=== PATIENT | male | born 1950 | race Caucasian/White ===

== ENCOUNTER 2019-08-14 00:30 | Inpatient (IN) | payer OTHER ==
[2019-08-14 01:19] LABS: #Eosinphils 0.1 thou/uL (0.0-0.7); #Lymphocytes 1.6 thou/uL (1.20-3.40); #Monocytes 0.6 thou/uL (0.11-0.59); #Neutrophils 12.5 thou/uL (1.40-6.50); %Basophils 0.1 % (0.0-1.0); %Eosinophils 0.9 % (0.0-10.0); %Lymphocytes 10.7 % (21.0-51.0); %Monocytes 4.1 % (0.0-10.0); %Neutrophils 84.1 % (42.0-75.0); Hemoglobin 14.2 g/dL (14.0-18.0); Mean Corpuscular HGB CONC 31.8 g/dL (32.0-36.0); Mean Corpuscular Hemoglobin 27.1 pg (27.0-31.0); Mean Corpuscular Volume 85.1 fL (78.0-98.0); Mean Platelet Volume 9.3 fL (7.4-10.4); Platelet Count 183 thou/uL (130-400); RBC Distribution Width 14.5 % (11.5-14.5); Red Blood Cell (RBC) Count 5.23 mill/uL (4.70-6.10); White Blood Cell (WBC) Count 14.9 thou/uL (4.8-10.8)
[2019-08-14 01:25] LABS: INR-International Normal Ratio 2.9; PTT 32.1 SEC (22.9-36.1)
[2019-08-14] MEDS ORDERED: Ondansetron PF 4 MG/2 ML Vial ONE (01:33)
[2019-08-14] MEDS ORDERED: Morphine 4 MG/ML VIAL ONE ×3 (01:33→03:40)
[2019-08-14 01:38] LABS: ALT (SGPT) 20 U/L (8-55); AST (SGOT) 39 U/L (5-34); Albumin 3.4 g/dL (3.4-4.8); Alkaline Phosphatase 77 U/L (40-110); Anion Gap 12 mmol/L (10-20); BUN (Urea Nitrogen) 15 mg/dL (8.4-25.7); Bilirubin, Total 0.5 mg/dL (0.2-1.2); Calc. Creatinine Clearance 0 mL/min (70-130); Carbon Dioxide 23 mmol/L (23-31); Chloride 108 mmol/L (98-107); Estimated GFR-MDRD 68; Globulin 2.4 g/dL (2.4-3.5); Glucose 138 mg/dL (80-115); Lipase 24 U/L (8-78); Potassium 3.7 mmol/L (3.5-5.1); Protein, Total 5.8 g/dL (5.8-8.1); Sodium 139 mmol/L (136-145)
[2019-08-14] MEDS ORDERED: [UNRECOGNIZED DRUG - OTHER] IV SCH (03:30)
[2019-08-14] MEDS ORDERED: ADMIXTURE FEE IV SCH (03:30)
[2019-08-14] MEDS ORDERED: HUM PROTHROMBIN CPLX IV SCH (03:30)
[2019-08-14] MEDS ORDERED: Phytonadione 10 MG/ML AMP SLOW IVP SCH (03:30)
[2019-08-14] MEDS ORDERED: Ondansetron PF 4 MG/2 ML Vial IVP PRN (04:38)
[2019-08-14] MEDS ORDERED: Ondansetron ODT 4 MG TAB PO PRN (04:38)
[2019-08-14] MEDS ORDERED: Sodium Chloride 0.9% 1,000 ML IV SCH (04:38)
[2019-08-14] MEDS ORDERED: HYDROcodone/Acetaminophen 5/325 mg Tablet PO PRN (04:38)
[2019-08-14] MEDS ORDERED: Dextrose 50% Abboject 50 ML SYRINGE SLOW IVP PRN (04:38)
[2019-08-14] MEDS ORDERED: Dextrose 5% in Water 1,000 ML IV PRN (04:38)
[2019-08-14] MEDS: HYDROcodone/Acetaminophen 5/325 mg Tablet PO PRN ×3 (05:18→23:23)
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
[2019-08-14] MEDS ORDERED: Acetaminophen 325 MG TAB PO PRN (07:03)
[2019-08-14] MEDS: Cyclobenzaprine 10 MG TAB PO PRN ×2 (07:45→18:03)
[2019-08-14] MEDS: Morphine 2 MG/ML SYRINGE SLOW IVP PRN ×4 (07:45→21:38)
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
--- NOTE | 2019-08-14 08:07 | RAD ---
EXAM: Single view of the chest HISTORY: Right rib fracture and effusion COMPARISON: None FINDINGS: Single view of the chest shows a normal sized cardiomediastinal silhouette. There is no justice dence of consolidation, mass, or pleural effusion. Degenerative changes are seen in the spine. IMPRESSION: No evidence of acute cardiopulmonary disease
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
[2019-08-14] MEDS: Famotidine 20 MG TAB PO SCH ×2 (09:01→20:18)
[2019-08-14] MEDS: Gabapentin 300 MG CAP PO SCH ×2 (09:01→20:18)
--- NOTE | 2019-08-14 09:01 | MRI ---
EXAM: MRI cervical spine without contrast HISTORY: C7 fracture with neck pain and cervical stenosis COMPARISON: None TECHNIQUE: Multiplanar multisequence MR images were obtained of the cervical spine without contrast. FINDINGS: There is a fracture of the C7 vertebral body and left posterior element. There is questionable abnormal T2 signal in the central cord on image 21 and 22. This is only seen on 1 of the 2 provided T2 sequences and may be artifactual but edema within the cord cannot be excluded. The craniocervical junction is unremarkable. Extensive edema is seen in the posterior paraspinal soft tissues in the upper cervical spine extendin g from the skull base down to the C7 level. A small amount of prevertebral edema is also seen. C2/3: Small generalized concentric disc bulge. No posterior facet arthrosis. Mild central canal jessica nosis. Mild bilateral neural foraminal stenosis. C3/4: Large disc osteophyte complex. Mild bilateral posterior facet arthrosis. Severe central canal stenosis. Moderate to severe neural foraminal stenosis. C4/5: Large disc osteophyte complex. Mild bilateral posterior facet arthrosis. Severe central canal stenosis. Moderate to severe neural foraminal stenosis. C5/6: A large disc osteophyte complex. Mild bilateral posterior facet arthrosis. Severe central can al stenosis. Moderate to severe neural foraminal stenosis. C6/7: A small disc osteophyte complex with superimposed right subarticular protrusion. No posterior facet arthrosis. Mild central canal stenosis. Mild bilateral neural foraminal stenosis. C7/T1: No significant posterior bulge or protrusion. Mild to moderate bilateral posterior facet arth rosis. Mild central canal stenosis. Moderate bilateral neural foraminal stenosis. IMPRESSION: 1. C7 fracture as above 2. Extensive edema in the soft tissues of the neck. 3. Questionable abnormal cord signal posterior to the area of fracture. This could also be artifactua l. Correlate with physical exam. 4. Severe degenerative changes of the cervical spine.
--- NOTE | 2019-08-14 09:03 | CT ---
EXAM: CT brain without contrast HISTORY: Small falcine subdural hemorrhage COMPARISON: 08/14/2019 TECHNIQUE: Multiple contiguous axial images were obtained and a CT of the brain without contrast. FINDINGS: There are scattered hypodensities in the subcortical and periventricular white matter consi stent with small vessel ischemic disease. There is no evidence of hydrocephalus, intracranial hemorrhage, or extra-axial fluid collection. The calvarium and overlying soft tissues are unremarkable. The visualized paranasal sinuses and masto id air cells are well aerated. IMPRESSION: No evidence of acute intracranial abnormality. No definite intracranial hemorrhage is see n.
[2019-08-14 10:32] LABS: INR-International Normal Ratio 1.4; PTT 29.2 SEC (22.9-36.1); Prothrombin Time 17.4 SEC (12.0-14.7)
[2019-08-14] MEDS ORDERED: Iopamidol-370 76% 500 ML 1 ML ONE (10:58)
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
[2019-08-14 11:45] LABS: Bacteria/HPF None Seen HPF (None Seen); Bilirubin Negative (Negative); Blood, Urine 1+ (Negative); Clarity Clear (Clear); Glucose, Urine (Dipstick) Normal (Negative); Leukocyte Negative Leu/uL (Negative); Nitrite Negative (Negative); Protein, Urine (Dipstick) 10 mg/dL (Neg-Trace); RBC/HPF 0-3 HPF (0-3); Squamous Epithelial 0-3 HPF (0-3); Urobilinogen Normal mg/dL (Less than 2)
[2019-08-14 12:37] LABS: INR-International Normal Ratio 1.4; PTT 28.9 SEC (22.9-36.1); Prothrombin Time 17.5 SEC (12.0-14.7)
[2019-08-14 18:21] LABS: INR-International Normal Ratio 1.4; Prothrombin Time 16.7 SEC (12.0-14.7)
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
[2019-08-15] MEDS: Morphine 2 MG/ML SYRINGE SLOW IVP PRN ×2 (01:45→06:34)
[2019-08-15] MEDS ORDERED: Zolpidem Tartrate 5 MG TAB PO PRN (03:28)
[2019-08-15] MEDS ORDERED: Lorazepam 2 MG/ML VIAL SLOW IVP SCH (03:30)
[2019-08-15] MEDS ORDERED: Sodium Chloride 0.9% 1,000 ML IV SCH (03:30)
[2019-08-15 03:35] LABS: #Eosinphils 0.1 thou/uL (0.0-0.7); #Lymphocytes 1.2 thou/uL (1.20-3.40); #Monocytes 0.8 thou/uL (0.11-0.59); #Neutrophils 8.4 thou/uL (1.40-6.50); %Basophils 0.1 % (0.0-1.0); %Eosinophils 1.3 % (0.0-10.0); %Monocytes 7.2 % (0.0-10.0); %Neutrophils 80.5 % (42.0-75.0); Hemoglobin 12.8 g/dL (14.0-18.0); Mean Corpuscular Hemoglobin 27.1 pg (27.0-31.0); Mean Corpuscular Volume 87.4 fL (78.0-98.0); Mean Platelet Volume 9.2 fL (7.4-10.4); Platelet Count 169 thou/uL (130-400); RBC Distribution Width 14.5 % (11.5-14.5); Red Blood Cell (RBC) Count 4.73 mill/uL (4.70-6.10); White Blood Cell (WBC) Count 10.4 thou/uL (4.8-10.8)
[2019-08-15] MEDS: Oxymetazoline HCl 0.05% (30 ML BOT) NS PRN (03:35)
[2019-08-15 03:43] LABS: INR-International Normal Ratio 1.3; PTT 32.5 SEC (22.9-36.1); Prothrombin Time 15.9 SEC (12.0-14.7)
[2019-08-15 03:54] LABS: Anion Gap 11 mmol/L (10-20); BUN (Urea Nitrogen) 11 mg/dL (8.4-25.7); Calc. Creatinine Clearance 146 mL/min (70-130); Calcium 7.9 mg/dL (7.8-10.44); Carbon Dioxide 26 mmol/L (23-31); Chloride 106 mmol/L (98-107); Estimated GFR-MDRD 83; Glucose 114 mg/dL (80-115); Potassium 4.1 mmol/L (3.5-5.1); Sodium 139 mmol/L (136-145)
[2019-08-15] MEDS: Famotidine 20 MG TAB PO SCH (07:39)
[2019-08-15] MEDS ORDERED: Bacitracin Zinc Ointment 30 gm TUBE ONE ×2 (07:40→07:41)
[2019-08-15] MEDS ORDERED: Sodium Chloride 0.9% 20 ML ONE (07:40)
[2019-08-15] MEDS: Gabapentin 300 MG CAP PO SCH ×2 (07:40→22:31)
[2019-08-15] MEDS: Cyclobenzaprine 10 MG TAB PO PRN (07:40)
[2019-08-15] MEDS ORDERED: Thrombin 5000 UNITS/5 ML VIAL ONE (07:40)
[2019-08-15] MEDS ORDERED: Fentanyl 250 MCG/5 ML VIAL ONE (08:06)
[2019-08-15] MEDS ORDERED: Phenylephrine HCL 10 MG/ML VIAL ONE ×2 (08:07→09:05)
[2019-08-15] MEDS ORDERED: Lidocaine 1% PF 5 ML VIAL ONE (09:08)
[2019-08-15] MEDS ORDERED: Rocuronium Bromide 10 MG/ML (10ML VIAL) ONE (09:08)
[2019-08-15] MEDS ORDERED: ePHEDrine/0.9% NaCl/PF SYRINGE 50 mg/10 ml ONE (09:08)
[2019-08-15] MEDS ORDERED: Ondansetron PF 4 MG/2 ML Vial ONE (09:08)
[2019-08-15] MEDS ORDERED: PROPOFOL 200 MG/20 ML VIAL ONE (09:08)
[2019-08-15] MEDS ORDERED: Rocuronium Bromide 50 MG/5 ML VIAL ONE ×2 (10:33→11:45)
[2019-08-15] MEDS ORDERED: Fentanyl BOLUS 250 ML IVPB PRN (11:12)
[2019-08-15] MEDS ORDERED: fentaNYL Citrate/PF 2,000 MCG in Sodium Chloride 0.9% 60 ML IV SCH (11:12)
[2019-08-15] MEDS ORDERED: DISCONTINUE PREVIOUS NARCOTIC PAIN MEDICATIONS AND BENZODIAZEPINES FS SCH (11:12)
[2019-08-15] MEDS ORDERED: Morphine 2 MG/ML SYRINGE SLOW IVP PRN (11:12)
[2019-08-15] MEDS ORDERED: Propofol BOLUS 1,000 MG/100 ML VIAL IV PRN (11:12)
[2019-08-15] MEDS ORDERED: Ventilator Sedation Protocol 1 EACH FS SCH (11:15)
[2019-08-15] MEDS ORDERED: Midazolam HCl 2 mg/2 ml Vial ONE (11:45)
[2019-08-15] MEDS: Propofol 1,000 MG/100 ML VIAL IV PRN ×2 (11:56→22:42)
[2019-08-15 13:20] LABS: Actual Bicarbonate (HCO3a) 25.4 mEq/L (22-28); Base Excess (BEa) 0.9 mEq/L (-2.0 to +3.0); CO2 Tension 40.1 mmHg (35.0-45.0); Calcium, Ionized 1.06 mmol/L (1.12-1.30); Carboxyhemoglobin (COHb) 2.2 gm% (0.0-3.0); Hemoglobin (Hb) 11.8 g/dL (14.0-18.0); O2 Tension (PaO2) 65.8 mmHg (> 80.0); pH, Arterial 7.42 (7.35-7.45)
[2019-08-15 13:21] LABS: ALV-art Gradient 240.575 (0-20); Puncture Site RR
[2019-08-15] MEDS: CEFAZOLIN 2 GM in Premix Bag 1 BAG IVPB SCH ×2 (13:32→22:32)
[2019-08-15] MEDS: Lorazepam 2 MG/ML VIAL SLOW IVP PRN ×2 (13:53→17:20)
[2019-08-15] MEDS ORDERED: traMADol HCl 50 MG TAB PO PRN ×2 (18:17)
[2019-08-15] MEDS ORDERED: Sodium Chloride 0.9% (PF) 10 ML VIAL FS PRN (18:23)
[2019-08-15] MEDS ORDERED: Acetaminophen 325 MG TAB PO SCH (18:30)
[2019-08-15 19:23] LABS: Actual Bicarbonate (HCO3a) 25.4 mEq/L (22-28); Base Excess (BEa) 1.4 mEq/L (-2.0 to +3.0); CO2 Tension 37.9 mmHg (35.0-45.0); Calcium, Ionized 1.06 mmol/L (1.12-1.30); Carboxyhemoglobin (COHb) 0.7 gm% (0.0-3.0); Hemoglobin (Hb) 11.5 g/dL (14.0-18.0); O2 Tension (PaO2) 96.9 mmHg (> 80.0); Potassium - ABG Lab 4.06 mmol/L (3.70-5.30); pH, Arterial 7.44 (7.35-7.45)
[2019-08-15 19:24] LABS: ALV-art Gradient 212.225 (0-20); Puncture Site RRADIAL
[2019-08-15] MEDS: Sodium Chloride 0.9% 1,000 ML IV SCH (19:42)
[2019-08-15] MEDS ORDERED: Dexamethasone 4 mg/ml Vial SLOW IVP SCH (21:00)
[2019-08-15] MEDS: Melatonin 3 MG TAB PO SCH (22:31)
[2019-08-16] MEDS: Acetaminophen 325 MG TAB PO SCH ×5 (00:30→23:43)
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
[2019-08-16] MEDS: Sodium Chloride 0.9% 1,000 ML IV SCH ×2 (03:32→11:03)
[2019-08-16 04:02] LABS: Band 1 % (5-11); Hemoglobin 10.7 g/dL (14.0-18.0); Lymphocytes 7 % (21-51); MDiff Complete? YES; Mean Corpuscular HGB CONC 31.9 g/dL (32.0-36.0); Mean Corpuscular Hemoglobin 27.7 pg (27.0-31.0); Mean Corpuscular Volume 86.7 fL (78.0-98.0); Mean Platelet Volume 9.3 fL (7.4-10.4); Monocytes 2 % (0-10); Neutrophil 90 % (42-75); Platelet Count 164 thou/uL (130-400); Platelet Morphology Comment Appears Adequate; RBC Distribution Width 14.2 % (11.5-14.5); Red Blood Cell (RBC) Count 3.86 mill/uL (4.70-6.10); White Blood Cell (WBC) Count 12.2 thou/uL (4.8-10.8)
[2019-08-16 04:07] LABS: Anion Gap 11 mmol/L (10-20); BUN (Urea Nitrogen) 12 mg/dL (8.4-25.7); Calc. Creatinine Clearance 166 mL/min (70-130); Calcium 7.5 mg/dL (7.8-10.44); Carbon Dioxide 25 mmol/L (23-31); Chloride 106 mmol/L (98-107); Estimated GFR-MDRD Greater than 90; Glucose 146 mg/dL (80-115); Magnesium 2.1 mg/dL (1.6-2.6); Potassium 4.2 mmol/L (3.5-5.1); Sodium 138 mmol/L (136-145)
[2019-08-16 04:10] LABS: Phosphorus 1.8 mg/dL (2.3-4.7)
[2019-08-16] MEDS ORDERED: Sodium Phosphate 15 MMOL in Sodium Chloride 0.9% 250 ML 250 ML IVPB SCH (05:00)
[2019-08-16] MEDS: CEFAZOLIN 2 GM in Premix Bag 1 BAG IVPB SCH ×3 (05:26→21:04)
[2019-08-16] MEDS: Propofol 1,000 MG/100 ML VIAL IV PRN ×2 (05:32→09:29)
[2019-08-16 07:46] LABS: Actual Bicarbonate (HCO3a) 25.3 mEq/L (22-28); Base Excess (BEa) -0.2 mEq/L (-2.0 to +3.0); CO2 Tension 44.6 mmHg (35.0-45.0); Calcium, Ionized 1.07 mmol/L (1.12-1.30); Carboxyhemoglobin (COHb) 1.4 gm% (0.0-3.0); Hemoglobin (Hb) 11.6 g/dL (14.0-18.0); Potassium - ABG Lab 3.81 mmol/L (3.70-5.30); pH, Arterial 7.37 (7.35-7.45)
[2019-08-16 07:48] LABS: Puncture Site RRA
[2019-08-16] MEDS ORDERED: Iopamidol 370 76% 50 ML VIAL FS ONE (08:54)
[2019-08-16] MEDS ORDERED: Pantoprazole 40 MG VIAL IVP SCH (09:00)
[2019-08-16] MEDS: Gabapentin 300 MG CAP PO SCH ×2 (09:16→20:33)
[2019-08-16] MEDS ORDERED: Enoxaparin Sodium 40 MG/0.4 ML SYRINGE SC SCH (09:30)
[2019-08-16] MEDS ORDERED: PHOS-NAK 1 PKT PACK PO SCH (10:15)
--- NOTE | 2019-08-16 10:52 | ULT ---
EXAM: Bilateral lower extremity venous Doppler HISTORY: Immobility post cervical spine surgery. History of prior DVT/PE. FINDINGS: Grayscale, color-flow, Doppler evaluation, spectral analysis of the bilateral lower extremities venou s structures is performed with 2-D imaging. The bilateral common femoral, superficial femoral, popliteal, posterior tibial, proximal greater saphenous and profunda femoral veins are imaged. There is decreased lumen compressibility with echogenic material seen in the distal left lower extrem ity superficial femoral vein. However, there is evidence of flow within the distal superficial femoral vein compatible with nonocclusive DVT. There is otherwise normal luminal compressibility, flow, and augmentation in the visualized deep veno us structures of the bilateral lower extremities. IMPRESSION: 1. Nonocclusive DVT distal left lower extremity superficial femoral vein. 2. Above findings discussed with Eligio, nurse in charge of patient care in the CCU, on 08/16/2019 at 1 049 hours.
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
--- NOTE | 2019-08-16 12:14 | PRG ---
DATE OF SERVICE: 08/16/2019 Mr. Loco is doing well postoperative, C3-T1 anterior decompression and stabilization surgery for degenerative changes in the spine with spinal cord compression coupled with an unstable 3 column C6, C7, T1 fracture/misalignment. He has a significant history of pulmonary embolism, and as such we will start him on Lovenox 30 mg subcutaneous b.i.d. I will also request that a temporary IVC filter be placed as the patient is at significant risk given his spinal injury and decreased mobilization coupled with a history of pulmonary embolism. Job ID: [id number]
[2019-08-16] MEDS ORDERED: Lidocaine 1% (PF) 30 ML VIAL ONE (13:33)
[2019-08-16] MEDS ORDERED: Heparin (Artline) 500 ML ONE (13:33)
--- NOTE | 2019-08-16 15:27 | PRG ---
DATE OF SERVICE: 08/16/2019 This is Roland Brambila PA-C dictating a report for Alex Karimi MD. Postoperative recheck. Mr. Loco is postoperative day #1 having undergone multilevel ACDF as well as C7 fracture stabilization and plating. He was left intubated overnight. His drain output was 70 mL since surgery, and we will continue this. He remains on Ancef. At this point, when he has awakened from the propofol, he moves all the extremities to command and has good strength in the bilateral hand mill recorder. He must be in his [place] collar 100% of the time, and I have ordered a [place] collar for showers. At this point, he may be extubated. I should note that we also obtained an ultrasound of the bilateral lower extremities due to history of bilateral leg DVT, and the patient does have an SVT into the left femoral vein. Dr. Karimi has discussed the patient's case with Dr. Joshi, and they will place him on appropriate Lovenox. Again, we will continue with the VALENTIN drain. The patient may have activity as tolerated, but he must be in his collar at all times. No need for any type of thoracic spine bracing. We will continue to follow up with the patient, overall appears to be improving. Job ID: [id number]
[2019-08-16] MEDS: Cyclobenzaprine 10 MG TAB PO PRN (17:02)
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
[2019-08-16] MEDS: Enoxaparin Sodium 30 MG/0.3 ML SYRINGE SC SCH (20:33)
[2019-08-16] MEDS: Melatonin 3 MG TAB PO SCH (20:33)
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
[2019-08-17] MEDS: Acetaminophen 325 MG TAB PO SCH ×2 (05:09→12:17)
[2019-08-17] MEDS: CEFAZOLIN 2 GM in Premix Bag 1 BAG IVPB SCH (05:09)
[2019-08-17 09:00] LABS: Anion Gap 8 mmol/L (10-20); BUN (Urea Nitrogen) 14 mg/dL (8.4-25.7); Calc. Creatinine Clearance 170 mL/min (70-130); Calcium 8.1 mg/dL (7.8-10.44); Carbon Dioxide 32 mmol/L (23-31); Chloride 107 mmol/L (98-107); Estimated GFR-MDRD Greater than 90; Glucose 104 mg/dL (80-115); Magnesium 3.9 mg/dL (1.6-2.6); Potassium 4.6 mmol/L (3.5-5.1); Sodium 142 mmol/L (136-145)
[2019-08-17] MEDS ORDERED: Enoxaparin Sodium 40 MG/0.4 ML SYRINGE SC SCH (09:00)
--- NOTE | 2019-08-17 09:22 | OP ---
DATE OF PROCEDURE: 08/16/2019 PREOPERATIVE DIAGNOSIS: Deep venous thrombosis with contraindication to anticoagulation. PROCEDURE: Insertion of a [place] IVC filter. ANESTHESIA: 1% lidocaine with 1 minute of fluoroscopy and 14 mL of contrast. DESCRIPTION OF PROCEDURE: After prepping and draping the right groin, ultrasound was used to guide puncture; however the femoral artery was initially punctured and after holding pressure, the femoral vein was then punctured with ultrasound guidance. Wire was inserted under fluoroscopy and vena cavography x2 obtained demonstrating the left renal vein. The right renal vein was noted to come off immediately caudal to the left renal vein. Vena cava measurements were satisfactory at about 25 below the renal veins and about 23 at one lumbar level. It was elected to place the filter in one lumbar level to ensure that the filter did not migrate. It was then deployed without difficulty. The pressure was held on the venous side and the patient tolerated the procedure well. Job ID: [id number]
[2019-08-17] MEDS ORDERED: Levothyroxine Sodium 25 MCG TAB PO SCH (10:00)
[2019-08-17] MEDS: Gabapentin 300 MG CAP PO SCH ×2 (10:28→20:41)
[2019-08-17] MEDS: traMADol HCl 50 MG TAB PO SCH ×3 (10:28→20:40)
[2019-08-17] MEDS: Enoxaparin Sodium 30 MG/0.3 ML SYRINGE SC SCH ×2 (10:30→20:38)
[2019-08-17] MEDS: cefTRIAXone\\ROCEPHIN 2 GM in Sodium Chloride 0.9% 100 ML IVPB SCH (10:46)
--- NOTE | 2019-08-17 10:51 | PRG ---
DATE OF SERVICE: 08/17/2019 Mr. Loco is postoperative day #2 after having undergone multilevel ACDF as well as C7 fracture stabilization and plating. He was extubated yesterday. He has been doing well off ventilator. His drain output was 30 mL overnight, 45 mL over the last 24 hours. We will leave his VALENTIN drain in place at this time. He remains on Ancef. The patient denies any pain in his neck or arms. He only reports pain in his lower back, which is chronic in nature. He has good movement of all extremities, excellent strength in his upper and lower extremities bilaterally. He will remain in an [place] collar at all times and a [place] collar has been ordered for showers. Ultrasound of the bilateral lower extremities completed yesterday revealed superficial venous thrombosis of the left femoral vein. Thus, he was placed on Lovenox [address] Polk placed a temporary IVC filter yesterday. The patient's vitals and labs have been stable. Therefore, plan at this time is to transfer patient to the floor. We will increasingly work with physical therapy to maximize mobilization. No steroids at this time. Continue Lovenox and Ancef. VALENTIN drain remains in place. The patient must remain in his [place] collar at all times. Call for any neurologic changes or other concerns. Job ID: [id number]
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
[2019-08-17] MEDS: PHOS-NAK 1 PKT PACK PO SCH ×2 (15:02→20:40)
[2019-08-17] MEDS ORDERED: Acetaminophen 500 MG TAB PO SCH (15:15)
[2019-08-17] MEDS: traMADol HCl 50 MG TAB PO PRN (17:34)
[2019-08-17] MEDS: Acetaminophen 500 MG TAB PO SCH ×2 (17:35→23:31)
[2019-08-17] MEDS: Melatonin 3 MG TAB PO SCH (20:42)
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
[2019-08-18] MEDS: PHOS-NAK 1 PKT PACK PO SCH ×2 (03:20→09:58)
[2019-08-18] MEDS: traMADol HCl 50 MG TAB PO SCH ×4 (03:20→20:53)
[2019-08-18 05:29] LABS: Eosinophils 1 % (0-10); Hemoglobin 10.7 g/dL (14.0-18.0); Lymphocytes 14 % (21-51); MDiff Complete? YES; Mean Corpuscular HGB CONC 29.4 g/dL (32.0-36.0); Mean Corpuscular Hemoglobin 25.8 pg (27.0-31.0); Mean Corpuscular Volume 87.6 fL (78.0-98.0); Mean Platelet Volume 9.2 fL (7.4-10.4); Monocytes 6 % (0-10); Neutrophil 79 % (42-75); Platelet Count 207 thou/uL (130-400); Platelet Morphology Comment Appears Adequate; RBC Distribution Width 14.4 % (11.5-14.5); Red Blood Cell (RBC) Count 4.13 mill/uL (4.70-6.10); White Blood Cell (WBC) Count 8.1 thou/uL (4.8-10.8)
[2019-08-18 05:50] LABS: Anion Gap 11 mmol/L (10-20); BUN (Urea Nitrogen) 14 mg/dL (8.4-25.7); Calc. Creatinine Clearance 184 mL/min (70-130); Calcium 7.7 mg/dL (7.8-10.44); Carbon Dioxide 28 mmol/L (23-31); Chloride 106 mmol/L (98-107); Estimated GFR-MDRD Greater than 90; Glucose 107 mg/dL (80-115); Magnesium 2.1 mg/dL (1.6-2.6); Phosphorus 2.9 mg/dL (2.3-4.7); Sodium 141 mmol/L (136-145)
[2019-08-18] MEDS: Acetaminophen 500 MG TAB PO SCH ×3 (05:59→18:16)
[2019-08-18] MEDS: Levothyroxine Sodium 25 MCG TAB PO SCH (05:59)
[2019-08-18] MEDS ORDERED: Levothyroxine Sodium 25 MCG TAB PO SCH (06:00)
[2019-08-18] MEDS ORDERED: Dexamethasone 4 mg/ml Vial SLOW IVP SCH (09:18)
[2019-08-18] MEDS: cefTRIAXone\\ROCEPHIN 2 GM in Sodium Chloride 0.9% 100 ML IVPB SCH (09:57)
[2019-08-18] MEDS: Gabapentin 300 MG CAP PO SCH ×2 (09:58→20:53)
[2019-08-18] MEDS: Enoxaparin Sodium 30 MG/0.3 ML SYRINGE SC SCH ×2 (09:58→20:53)
[2019-08-18] MEDS: Lisinopril 10 MG TAB PO SCH (09:58)
[2019-08-18] MEDS: Allopurinol 300 MG TAB PO SCH (10:00)
[2019-08-18] MEDS: Atorvastatin Calcium 20 MG TAB PO SCH (10:00)
[2019-08-18] MEDS: Oxymetazoline HCl 0.05% (30 ML BOT) NS PRN (10:35)
--- NOTE | 2019-08-18 13:41 | PRG ---
DATE OF SERVICE: 08/18/2019 Mr. Loco is postoperative day #3 having undergone multilevel anterior cervical fusion. The patient overall does have some bilateral shoulder pain, posterior neck pain, and is dysphonic, but otherwise appears to be improving slowly. We have let him know that he may remove his collar when he is lying flat in bed, but otherwise needs to have this on. His VALENTIN drain put out 13 mL in last 24 hours and remains on Ancef and we will keep the drain at least overnight. Given his lower extremity DVT, he is on 30 mg subcu Lovenox twice a day and has a temporary IVC filter. We did provide some Decadron including 4-day Decadron taper to help with his swelling and dysphagia and have placed him on a full liquid diet without the ability to advance. We have also ordered a CPAP for him to wear overnight as he does have obstructive sleep apnea. Continue to monitor the patient, but he does appear as though he is improving. He has excellent strength in the bilateral upper extremities, but has some difficulty with raising the arms over the head secondary to shoulder pain. He moves the bilateral lower extremities antigravity. Please call with any changes in patient's neurologic status. Otherwise, he is slowly improving. Job ID: [id number]
[2019-08-18] MEDS: Dexamethasone 4 mg/ml Vial SLOW IVP SCH ×2 (16:01→21:01)
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
[2019-08-18] MEDS: Senokot S 8.6-50 MG TAB PO SCH (20:53)
[2019-08-18] MEDS: Melatonin 3 MG TAB PO SCH (20:53)
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
[2019-08-19] MEDS: Acetaminophen 500 MG TAB PO SCH ×5 (00:27→23:15)
[2019-08-19] MEDS: traMADol HCl 50 MG TAB PO SCH ×4 (04:18→21:09)
[2019-08-19] MEDS: Dexamethasone 4 mg/ml Vial SLOW IVP SCH ×5 (04:19→21:10)
[2019-08-19] MEDS: Levothyroxine Sodium 25 MCG TAB PO SCH (05:40)
[2019-08-19] MEDS: Cyclobenzaprine 10 MG TAB PO PRN (07:15)
[2019-08-19 07:43] LABS: Anion Gap 10 mmol/L (10-20); BUN (Urea Nitrogen) 16 mg/dL (8.4-25.7); Calc. Creatinine Clearance 166 mL/min (70-130); Calcium 8.8 mg/dL (7.8-10.44); Carbon Dioxide 31 mmol/L (23-31); Chloride 103 mmol/L (98-107); Estimated GFR-MDRD Greater than 90; Glucose 130 mg/dL (80-115); Magnesium 2.2 mg/dL (1.6-2.6); Phosphorus 2.2 mg/dL (2.3-4.7); Potassium 4.7 mmol/L (3.5-5.1); Sodium 139 mmol/L (136-145)
[2019-08-19] MEDS: cefTRIAXone\\ROCEPHIN 2 GM in Sodium Chloride 0.9% 100 ML IVPB SCH (09:32)
[2019-08-19] MEDS: Allopurinol 300 MG TAB PO SCH (09:42)
[2019-08-19] MEDS: Atorvastatin Calcium 20 MG TAB PO SCH (09:42)
[2019-08-19] MEDS: Polyethylene Glycol 3350 17 GM Packet PO SCH (09:42)
[2019-08-19] MEDS: Senokot S 8.6-50 MG TAB PO SCH ×2 (09:44→21:09)
[2019-08-19] MEDS: Lisinopril 10 MG TAB PO SCH (09:44)
[2019-08-19] MEDS: Gabapentin 300 MG CAP PO SCH ×2 (09:45→21:09)
[2019-08-19] MEDS: Enoxaparin Sodium 30 MG/0.3 ML SYRINGE SC SCH ×2 (09:45→21:08)
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
--- NOTE | 2019-08-19 14:47 | PRG ---
DATE OF SERVICE: 08/19/2019 SUBJECTIVE: Mr. Loco is postoperative day #4 after undergoing multilevel anterior cervical diskectomies and fusion and C7 fracture stabilization with anterior plating. He denies any neck or arm pain at this time. He reports low back pain, but states this is chronic in nature. He continues to have good movement and excellent strength throughout his upper and lower extremities bilaterally. The patient states that he has been able to ambulate about his room. His anterior cervical VALENTIN drain had an output of 10 mL over the last 24 hours. The drain was removed today without difficulty. The patient remains on Lovenox 30 mg b.i.d. for DVT prophylaxis. He remains on Decadron taper and Protonix. The patient is very pleased with the outcome of this surgery and is improving with each day. Likely plan will be for him to be discharged to inpatient rehab. Case Management is assisting with placement. From a neurosurgical standpoint, the patient is doing very well and can be discharged any time. We will re-evaluate tomorrow. Call sooner for any neurologic changes or other concerns. Job ID: [id number] [facility]
[2019-08-19] MEDS: Melatonin 3 MG TAB PO SCH (21:08)
[2019-08-19] MEDS: Amoxicillin/Potassium Clav 875 MG TAB PO SCH (21:09)
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
[2019-08-20] MEDS: traMADol HCl 50 MG TAB PO SCH ×4 (04:08→21:14)
[2019-08-20] MEDS: Dexamethasone 4 mg/ml Vial SLOW IVP SCH ×4 (04:08→21:14)
[2019-08-20] MEDS: Levothyroxine Sodium 25 MCG TAB PO SCH (06:08)
[2019-08-20] MEDS: Acetaminophen 500 MG TAB PO SCH ×4 (06:08→23:34)
[2019-08-20] MEDS: Amoxicillin/Potassium Clav 875 MG TAB PO SCH ×2 (09:27→21:13)
[2019-08-20] MEDS: Allopurinol 300 MG TAB PO SCH (09:28)
[2019-08-20] MEDS: Atorvastatin Calcium 20 MG TAB PO SCH (09:28)
[2019-08-20] MEDS: Gabapentin 300 MG CAP PO SCH ×2 (09:29→21:14)
[2019-08-20] MEDS: Enoxaparin Sodium 30 MG/0.3 ML SYRINGE SC SCH ×2 (09:30→21:14)
[2019-08-20] MEDS: Lisinopril 10 MG TAB PO SCH (09:33)
[2019-08-20] MEDS: Polyethylene Glycol 3350 17 GM Packet PO SCH (09:37)
[2019-08-20] MEDS: Senokot S 8.6-50 MG TAB PO SCH ×2 (09:37→23:29)
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
--- NOTE | 2019-08-20 20:29 | ULT ---
LEFT LOWER EXTREMITY DOPPLER VENOUS ULTRASOUND PROVIDED CLINICAL HISTORY: History of left lower extremity DVT TECHNIQUE: Grayscale and color Doppler sonography with spectral analysis was performed of the left common femora l, femoral, popliteal, posterior tibial, greater saphenous and profunda femoral veins. FINDINGS: There is persistent partially occlusive thrombus within the distal left superficial femoral vein. There is also some mild partially occlusive thrombus seen within the proximal left popliteal vein was not fully seen on the comparison examination performed on August 16, 2019. The remaining de ep venous segments of the left lower extremity were within normal limits. IMPRESSION: Partially occlusive thrombus within the distal left superficial femoral vein and proximal left poplit eal vein. The proximal left popliteal partially occlusive thrombus was not demonstrated on the prior examination. Partially occlusive thrombus within the distal left superficial femoral vein appea r stable.
[2019-08-20] MEDS: Melatonin 3 MG TAB PO SCH (21:13)
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
[2019-08-21] MEDS: traMADol HCl 50 MG TAB PO SCH ×4 (03:57→21:24)
[2019-08-21] MEDS: Dexamethasone 4 mg/ml Vial SLOW IVP SCH ×4 (03:57→21:25)
[2019-08-21] MEDS: Levothyroxine Sodium 25 MCG TAB PO SCH (06:04)
[2019-08-21] MEDS: Acetaminophen 500 MG TAB PO SCH ×3 (06:04→17:41)
[2019-08-21] MEDS: Enoxaparin Sodium 30 MG/0.3 ML SYRINGE SC SCH ×2 (09:45→21:24)
[2019-08-21] MEDS: Lisinopril 10 MG TAB PO SCH (09:46)
[2019-08-21] MEDS: Atorvastatin Calcium 20 MG TAB PO SCH (09:46)
[2019-08-21] MEDS: Gabapentin 300 MG CAP PO SCH ×2 (09:46→21:25)
[2019-08-21] MEDS: Amoxicillin/Potassium Clav 875 MG TAB PO SCH ×2 (09:47→21:24)
[2019-08-21] MEDS: Allopurinol 300 MG TAB PO SCH (09:47)
[2019-08-21] MEDS: Senokot S 8.6-50 MG TAB PO SCH ×2 (09:48→21:30)
[2019-08-21] MEDS: Polyethylene Glycol 3350 17 GM Packet PO SCH (09:48)
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
[2019-08-21] MEDS: Melatonin 3 MG TAB PO SCH (21:25)
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
[2019-08-22] MEDS: Acetaminophen 500 MG TAB PO SCH ×5 (00:32→22:28)
[2019-08-22] MEDS: traMADol HCl 50 MG TAB PO SCH ×4 (03:27→20:11)
[2019-08-22] MEDS: Dexamethasone 4 mg/ml Vial SLOW IVP SCH ×4 (03:27→21:59)
[2019-08-22] MEDS: Levothyroxine Sodium 25 MCG TAB PO SCH (05:42)
[2019-08-22] MEDS: Allopurinol 300 MG TAB PO SCH (08:47)
[2019-08-22] MEDS: Gabapentin 300 MG CAP PO SCH ×3 (08:47→20:12)
[2019-08-22] MEDS: Lisinopril 10 MG TAB PO SCH (08:48)
[2019-08-22] MEDS: Atorvastatin Calcium 20 MG TAB PO SCH (08:49)
[2019-08-22] MEDS: Enoxaparin Sodium 30 MG/0.3 ML SYRINGE SC SCH ×2 (08:49→20:10)
[2019-08-22] MEDS: Amoxicillin/Potassium Clav 875 MG TAB PO SCH ×2 (08:49→20:10)
[2019-08-22] MEDS: Senokot S 8.6-50 MG TAB PO SCH ×2 (08:50→20:12)
[2019-08-22] MEDS: Polyethylene Glycol 3350 17 GM Packet PO SCH (08:50)
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
[2019-08-22] MEDS: Melatonin 3 MG TAB PO SCH (20:15)
[2019-08-23] MEDS: traMADol HCl 50 MG TAB PO SCH ×4 (03:46→20:33)
[2019-08-23] MEDS: Dexamethasone 4 mg/ml Vial SLOW IVP SCH (03:48)
[2019-08-23] MEDS: Acetaminophen 500 MG TAB PO SCH ×3 (06:06→17:33)
[2019-08-23] MEDS: Levothyroxine Sodium 25 MCG TAB PO SCH (06:06)
[2019-08-23] MEDS: Amoxicillin/Potassium Clav 875 MG TAB PO SCH ×2 (08:54→20:33)
[2019-08-23] MEDS: Senokot S 8.6-50 MG TAB PO SCH ×2 (08:55→20:33)
[2019-08-23] MEDS: Atorvastatin Calcium 20 MG TAB PO SCH (08:55)
[2019-08-23] MEDS: Lisinopril 10 MG TAB PO SCH (08:55)
[2019-08-23] MEDS: Allopurinol 300 MG TAB PO SCH (08:55)
[2019-08-23] MEDS: Gabapentin 300 MG CAP PO SCH ×3 (08:56→20:35)
[2019-08-23] MEDS: Enoxaparin Sodium 30 MG/0.3 ML SYRINGE SC SCH ×2 (08:56→20:35)
[2019-08-23] MEDS: Polyethylene Glycol 3350 17 GM Packet PO SCH (08:56)
[2019-08-23] MEDS: Cyclobenzaprine 10 MG TAB PO PRN ×2 (12:23→20:34)
[2019-08-23] MEDS: traMADol HCl 50 MG TAB PO PRN (20:34)
[2019-08-23] MEDS: Melatonin 3 MG TAB PO SCH (20:35)
[2019-08-23] MEDS ORDERED: HYDROcodone/Acetaminophen 10/325 mg Tablet PO PRN (23:50)
[2019-08-24] MEDS: Acetaminophen 500 MG TAB PO SCH ×4 (00:02→18:11)
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
[2019-08-24] MEDS: traMADol HCl 50 MG TAB PO SCH ×4 (04:30→21:07)
[2019-08-24] MEDS: traMADol HCl 50 MG TAB PO PRN (04:30)
[2019-08-24] MEDS: Levothyroxine Sodium 25 MCG TAB PO SCH (06:27)
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
[2019-08-24] MEDS: Polyethylene Glycol 3350 17 GM Packet PO SCH (08:23)
[2019-08-24] MEDS: Gabapentin 300 MG CAP PO SCH ×3 (08:24→21:07)
[2019-08-24] MEDS: Senokot S 8.6-50 MG TAB PO SCH ×2 (08:24→21:10)
[2019-08-24] MEDS: Allopurinol 300 MG TAB PO SCH (08:24)
[2019-08-24] MEDS: Lisinopril 10 MG TAB PO SCH (08:24)
[2019-08-24] MEDS: Atorvastatin Calcium 20 MG TAB PO SCH (08:25)
[2019-08-24] MEDS: Enoxaparin Sodium 30 MG/0.3 ML SYRINGE SC SCH ×2 (08:25→21:06)
--- NOTE | 2019-08-24 10:42 | PRG ---
DATE OF SERVICE: 08/24/2019 This is Roland Brambila PA-C dictating a report for Alex Karimi MD. Mr. Loco is postoperative day #9 having undergone multilevel anterior cervical diskectomy and fusion as well as C7 fracture fixation anteriorly. The patient overall is improving. He continues with some dysphonia and dysphagia, though feels as overall this is improving. His main issue now is left lower extremity swelling secondary to DVT formation. He does have a temporary IVC filter in place. He has also been on prophylactic Lovenox 30 mg subcu twice daily. We can begin to escalate this as the patient needs to be on full anticoagulation, transition back to his Coumadin. We want to do this over several days period rather than immediately given his history of subdural hematoma and recent cervical spine surgery. Otherwise, the patient has occasional intrascapular pain. His main complaint really is left leg pain secondary to swelling and right-sided rib pain from his rib fractures. He is working with therapies, and at any point, he is ready for discharge to inpatient rehab versus home with Home Health whatever he qualifies for. He may have his collar off occasionally when he is lying in bed, but otherwise needs to have his collar on at all times with a [place] collar for showers. Steri-Strips are slowly falling off and his incision is healing very well with minimal scabbing. No drainage or signs of dehiscence. Neurologically, the patient has excellent strength in all the extremities, although he is slower to move the left lower extremity secondary to swelling. Also, I will talk to our trauma colleagues in regard to escalating his anticoagulation. Job ID: [id number]
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
[2019-08-24] MEDS ORDERED: Warfarin Sodium 5 MG TAB PO SCH (17:00)
[2019-08-24] MEDS: Melatonin 3 MG TAB PO SCH (21:10)
[2019-08-25] MEDS: Acetaminophen 500 MG TAB PO SCH ×5 (00:51→23:17)
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
[2019-08-25] MEDS: Cyclobenzaprine 10 MG TAB PO PRN (03:59)
[2019-08-25] MEDS: traMADol HCl 50 MG TAB PO SCH ×4 (03:59→20:29)
[2019-08-25] MEDS: traMADol HCl 50 MG TAB PO PRN (04:00)
[2019-08-25] MEDS: Levothyroxine Sodium 25 MCG TAB PO SCH (05:46)
[2019-08-25] MEDS ORDERED: Warfarin Sodium 5 MG TAB PO SCH (07:27)
[2019-08-25] MEDS ORDERED: WARFARIN PO PRN (07:34)
[2019-08-25] MEDS: Atorvastatin Calcium 20 MG TAB PO SCH (08:24)
[2019-08-25] MEDS: Allopurinol 300 MG TAB PO SCH (08:24)
[2019-08-25] MEDS: Gabapentin 300 MG CAP PO SCH ×3 (08:25→20:29)
[2019-08-25] MEDS: Lisinopril 10 MG TAB PO SCH (08:25)
[2019-08-25] MEDS: Senokot S 8.6-50 MG TAB PO SCH ×2 (08:25→20:29)
[2019-08-25] MEDS: Polyethylene Glycol 3350 17 GM Packet PO SCH (08:26)
[2019-08-25] MEDS: Enoxaparin Sodium 30 MG/0.3 ML SYRINGE SC SCH (08:26)
[2019-08-25 11:10] VITALS: BMI 34.0
[2019-08-25] MEDS: Ibuprofen 600 MG TAB PO SCH ×2 (11:40→17:32)
--- NOTE | 2019-08-25 14:21 | PRG ---
DATE OF SERVICE: 08/25/2019 Mr. Loco is postoperative day #10 after having undergone multilevel anterior cervical diskectomy and fusion and C7 fracture fixation with anterior plating. The patient is overall improved. He continues to have slight dysphonia and dysphagia, however these are gradually improving. His primary complaints are right-sided rib pain, as well as left calf pain and swelling. His calf symptoms are secondary to DVT formation involving the left popliteal vein. He has an IVC filter in place. Upon discussion with Trauma team, patient remains on Lovenox 30 mg SQ BID and was re-started on Coumadin yesterday. He has been able to ambulate, but is reluctant to do so given the pain in his ribs and calf that are exacerbated by movement and walking. He states that he refused to participate in PT yesterday. Encouraged him to work with PT today. The patient is awake, alert, and appropriate. He was wearing his [place] J cervical collar and sitting upright at the side of the bed eating breakfast when evaluated this morning. Anterior cervical wound is healing well without any signs of infection, dehiscence, or drainage. He has excellent 5/5 strength throughout his upper and lower extremity myotomes bilaterally. Full range of motion and good movement of arms and legs. Tenderness to palpation of his lateral aspect of the right ribs. There is edema , erythema, ecchymosis, and tenderness to palpation of his left calf. However, the edema and warmth appear somewhat improved from yesterday. Overall, the patient appears to be doing well postoperatively with regards to his extremity strength and movement. He will benefit from continued therapies for mobilization. Will continue Lovenox and Coumadin. From a Neurosurgical standpoint, the patient is cleared to go to inpatient rehab at any time. We will continue to follow while he remains in the hospital. Call for any neurologic changes or other concerns. Job ID: [id number] [facility]
[2019-08-25] MEDS: Warfarin Sodium 10 MG TAB PO SCH (17:12)
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
[2019-08-25] MEDS: Melatonin 3 MG TAB PO SCH (20:29)
[2019-08-25] MEDS: Enoxaparin Sodium 40 MG/0.4 ML SYRINGE SC SCH (20:29)
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
[2019-08-26] MEDS: Ibuprofen 600 MG TAB PO SCH ×3 (03:39→18:26)
[2019-08-26] MEDS: traMADol HCl 50 MG TAB PO SCH ×4 (03:39→21:20)
[2019-08-26] MEDS: Levothyroxine Sodium 25 MCG TAB PO SCH (06:07)
[2019-08-26] MEDS: Acetaminophen 500 MG TAB PO SCH (06:07)
[2019-08-26] MEDS: Polyethylene Glycol 3350 17 GM Packet PO SCH ×2 (08:25→08:33)
[2019-08-26] MEDS: Enoxaparin Sodium 40 MG/0.4 ML SYRINGE SC SCH ×2 (08:25→21:20)
[2019-08-26] MEDS: Gabapentin 300 MG CAP PO SCH ×3 (08:26→21:19)
[2019-08-26] MEDS: Atorvastatin Calcium 20 MG TAB PO SCH (08:26)
[2019-08-26] MEDS: Senokot S 8.6-50 MG TAB PO SCH ×2 (08:26→21:19)
[2019-08-26] MEDS: Lisinopril 10 MG TAB PO SCH (08:26)
[2019-08-26] MEDS: Allopurinol 300 MG TAB PO SCH (08:26)
[2019-08-26 09:32] LABS: #Basophils 0.1 thou/uL (0.0-0.2); #Eosinphils 0.3 thou/uL (0.0-0.7); #Lymphocytes 1.7 thou/uL (1.20-3.40); #Monocytes 0.4 thou/uL (0.11-0.59); #Neutrophils 9.5 thou/uL (1.40-6.50); %Basophils 0.6 % (0.0-1.0); %Eosinophils 2.6 % (0.0-10.0); %Lymphocytes 14.2 % (21.0-51.0); %Monocytes 3.7 % (0.0-10.0); %Neutrophils 78.9 % (42.0-75.0); Hemoglobin 13.4 g/dL (14.0-18.0); Mean Corpuscular HGB CONC 30.1 g/dL (32.0-36.0); Mean Corpuscular Volume 89.9 fL (78.0-98.0); Mean Platelet Volume 9.2 fL (7.4-10.4); Platelet Count 259 thou/uL (130-400); RBC Distribution Width 15.7 % (11.5-14.5); Red Blood Cell (RBC) Count 4.95 mill/uL (4.70-6.10)
[2019-08-26 09:59] LABS: Anion Gap 14 mmol/L (10-20); BUN (Urea Nitrogen) 15 mg/dL (8.4-25.7); Calc. Creatinine Clearance 158 mL/min (70-130); Calcium 8.4 mg/dL (7.8-10.44); Carbon Dioxide 23 mmol/L (23-31); Chloride 104 mmol/L (98-107); Estimated GFR-MDRD Greater than 90; Glucose 88 mg/dL (80-115); Potassium 4.8 mmol/L (3.5-5.1); Sodium 136 mmol/L (136-145)
[2019-08-26 10:02] LABS: ALT (SGPT) 37 U/L (8-55); AST (SGOT) 36 U/L (5-34); Albumin 3.1 g/dL (3.4-4.8); Alkaline Phosphatase 106 U/L (40-110); Bilirubin, Direct 0.3 mg/dL (0.1-0.3); Bilirubin, Total 0.6 mg/dL (0.2-1.2); Protein, Total 5.9 g/dL (5.8-8.1)
[2019-08-26] MEDS: Acetaminophen 325 MG TAB PO SCH ×3 (12:50→23:37)
[2019-08-26] MEDS: Cyclobenzaprine 10 MG TAB PO PRN (12:54)
[2019-08-26] MEDS: Warfarin Sodium 10 MG TAB PO SCH (16:27)
[2019-08-26] MEDS: Melatonin 3 MG TAB PO SCH (21:19)
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
[2019-08-27] MEDS: Ibuprofen 600 MG TAB PO SCH ×4 (03:45→19:30)
[2019-08-27] MEDS: traMADol HCl 50 MG TAB PO SCH ×4 (03:47→20:51)
[2019-08-27 05:17] LABS: INR-International Normal Ratio 1.2; Prothrombin Time 14.8 SEC (12.0-14.7)
[2019-08-27] MEDS: Levothyroxine Sodium 25 MCG TAB PO SCH (06:31)
[2019-08-27] MEDS: Acetaminophen 325 MG TAB PO SCH ×5 (06:31→23:56)
[2019-08-27] MEDS: Senokot S 8.6-50 MG TAB PO SCH ×2 (09:47→20:50)
[2019-08-27] MEDS: Atorvastatin Calcium 20 MG TAB PO SCH (09:48)
[2019-08-27] MEDS: Lisinopril 10 MG TAB PO SCH (09:48)
[2019-08-27] MEDS: Allopurinol 300 MG TAB PO SCH (09:48)
[2019-08-27] MEDS: Gabapentin 300 MG CAP PO SCH ×3 (09:49→20:49)
[2019-08-27] MEDS: Enoxaparin Sodium 40 MG/0.4 ML SYRINGE SC SCH ×2 (09:51→20:53)
[2019-08-27] MEDS: Polyethylene Glycol 3350 17 GM Packet PO SCH (09:56)
[2019-08-27] MEDS ORDERED: Warfarin Sodium 2.5 MG TAB PO SCH (17:00)
[2019-08-27] MEDS: Warfarin Sodium 10 MG TAB PO SCH (17:01)
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
[2019-08-27] MEDS: Melatonin 3 MG TAB PO SCH (20:50)
[2019-08-28] MEDS: Ibuprofen 600 MG TAB PO SCH (02:59)
[2019-08-28] MEDS: traMADol HCl 50 MG TAB PO SCH (03:00)
[2019-08-28] MEDS: Acetaminophen 325 MG TAB PO SCH (05:47)
[2019-08-28] MEDS: Levothyroxine Sodium 25 MCG TAB PO SCH (05:48)
[2019-08-28 06:11] LABS: INR-International Normal Ratio 1.3; Prothrombin Time 16.4 SEC (12.0-14.7)
[2019-08-28 07:17] VITALS: BP 117/71; TEMP 98
[2019-08-28] MEDS: Enoxaparin Sodium 40 MG/0.4 ML SYRINGE SC SCH (08:16)
== END 2019-08-28 08:35 | DRG 957 ==
LOC: ERS 00:30 → CCU 03:58 → SURG B 08-17 22:43
PROVIDERS: ADMIT Surgery; ATTEND Surgery
PROC: 30283B1 Transfusion of Nonautologous 4-Factor Prothrombin Complex Concentrate into Vein, Percutaneous Approach (ICD-10-PCS; 2019-08-14)
PROC: 0RG20A0 Fusion of 2 or more Cervical Vertebral Joints with Interbody Fusion Device, Anterior Approach, Anterior Column, Open Approach (ICD-10-PCS; principal; 2019-08-15)
PROC: 0RB30ZZ Excision of Cervical Vertebral Disc, Open Approach (ICD-10-PCS; 2019-08-15)
PROC: 01N10ZZ Release Cervical Nerve, Open Approach (ICD-10-PCS; 2019-08-15)
PROC: 06H03DZ Insertion of Intraluminal Device into Inferior Vena Cava, Percutaneous Approach (ICD-10-PCS; 2019-08-16)
PROC: 5A09357 Assistance with Respiratory Ventilation, Less than 24 Consecutive Hours, Continuous Positive Airway Pressure (ICD-10-PCS; 2019-08-17)
DX: S12.600A Unspecified displaced fracture of seventh cervical vertebra, initial encounter for closed fracture (principal); S06.5X9A Traumatic subdural hemorrhage with loss of consciousness of unspecified duration, initial encounter; S27.1XXA Traumatic hemothorax, initial encounter; J96.00 Acute respiratory failure, unspecified whether with hypoxia or hypercapnia; S22.41XA Multiple fractures of ribs, right side, initial encounter for closed fracture; J90 Pleural effusion, not elsewhere classified; I82.412 Acute embolism and thrombosis of left femoral vein; G99.2 Myelopathy in diseases classified elsewhere; S27.321A Contusion of lung, unilateral, initial encounter; I10 Essential (primary) hypertension; E78.5 Hyperlipidemia, unspecified; M48.02 Spinal stenosis, cervical region; M43.12 Spondylolisthesis, cervical region; Z86.718 Personal history of other venous thrombosis and embolism; Z86.711 Personal history of pulmonary embolism; Z79.01 Long term (current) use of anticoagulants; V69.9XXA Occupant (driver) (passenger) of heavy transport vehicle injured in unspecified traffic accident, initial encounter; Y92.410 Unspecified street and highway as the place of occurrence of the external cause
CPT/HCPCS: 36415; 37191; 70450; 71045; 71260; 72125; 72141; 74177; 76000; 80048; 80053; 80076; 81001; 82533; 82805; 83690; 83735; 84100; 85007; 85025; 85027; 85610; 85730; 86850; 86900; 86901; 93970; 94002; 94003; 94640; 94660; 96374; 96375; 96376; 99292; C1713; C1769; C1776; C9113; C9132; G0390; J0690; J0696; J1100; J1644; J1650; J2001; J2060; J2250; J2270; J2370; J2405; J2704; J3010; J3370; J3430; J3490; J7050; J7620; L0172; L0174; Q9967

== ENCOUNTER 2019-08-30 17:18 | Observation (INO) | payer OTHER ==
[~2019-08-30 17:18] MED LIST: Iopamidol-370 76% 500 ML 1 ML ONE
[2019-08-30 18:03] LABS: #Basophils 0.1 thou/uL (0.0-0.2); #Eosinphils 0.2 thou/uL (0.0-0.7); #Lymphocytes 1.6 thou/uL (1.20-3.40); #Monocytes 0.9 thou/uL (0.11-0.59); #Neutrophils 7.7 thou/uL (1.40-6.50); %Basophils 0.6 % (0.0-1.0); %Eosinophils 1.6 % (0.0-10.0); %Lymphocytes 15.5 % (21.0-51.0); %Monocytes 8.9 % (0.0-10.0); %Neutrophils 73.5 % (42.0-75.0); Hemoglobin 13.3 g/dL (14.0-18.0); Mean Corpuscular HGB CONC 31.4 g/dL (32.0-36.0); Mean Corpuscular Hemoglobin 27.7 pg (27.0-31.0); Mean Corpuscular Volume 88.1 fL (78.0-98.0); Mean Platelet Volume 8.7 fL (7.4-10.4); Platelet Count 267 thou/uL (130-400); White Blood Cell (WBC) Count 10.5 thou/uL (4.8-10.8)
[2019-08-30 18:11] LABS: INR-International Normal Ratio 1.8; PTT 33.7 SEC (22.9-36.1); Prothrombin Time 20.8 SEC (12.0-14.7)
[2019-08-30 18:13] LABS: D-Dimer Test 2.33 *mcg/mL (0.27-0.43)
[2019-08-30 18:25] LABS: ALT (SGPT) 39 U/L (8-55); AST (SGOT) 29 U/L (5-34); Albumin 3.7 g/dL (3.4-4.8); Alkaline Phosphatase 147 U/L (40-110); Anion Gap 13 mmol/L (10-20); BUN (Urea Nitrogen) 14 mg/dL (8.4-25.7); Bilirubin, Total 0.5 mg/dL (0.2-1.2); CK (CPK) 64 U/L (30-200); Calc. Creatinine Clearance 0 mL/min (70-130); Calcium 8.6 mg/dL (7.8-10.44); Carbon Dioxide 25 mmol/L (23-31); Chloride 106 mmol/L (98-107); Estimated GFR-MDRD 76; Globulin 2.6 g/dL (2.4-3.5); Glucose 85 mg/dL (80-115); Protein, Total 6.3 g/dL (5.8-8.1); Sodium 140 mmol/L (136-145)
--- NOTE | 2019-08-30 19:57 | CT ---
CT Brain WO Con: 08/30/2019 7:16 PM CLINICAL HISTORY: Headache. IMAGING TECHNIQUE: Multiple CT images were obtained of the brain without IV contrast. COMPARISON: CT brain dated August 14, 2019 at 12:50 AM and 8:50 AM FINDINGS: Brain: No acute infarct or hemorrhage is evident. No midline shift. There is stable remote lacunar infarcts involving the right basal ganglia. Ventricles: Normal. No hydrocephalus. Skull: Intact. Visualized Paranasal sinuses: Clear. Mastoid air cells:Clear. Extracranial soft tissues:Normal. IMPRESSION: No acute intracranial abnormality.
--- NOTE | 2019-08-30 20:11 | CT ---
CTA Angio Chest W WO Con 08/30/2019 7:16 PM Indication: Left-sided chest pain radiating into the left shoulder Technique: Multiple CTA images were obtained of the thorax with IV contrast. 3-D rendering: MIP red nstructed images were created and reviewed. Comparison: CT of the chest, abdomen and pelvis dated August 14, 2019 Findings: Pulmonary arteries: Respiratory motion artifact limits evaluation of the segmental pulmonary arterie s. No definite central pulmonary embolus is present. Heart and Aorta: There are mild coronary artery and thoracic aortic calcifications. Mediastinum:Normal appearing. No enlarged lymph nodes. Lungs:There areas of subsegmental volume loss within the lingula and left lower lobe. Pleural space: There is a persistent small right pleural effusion. Upper Abdomen: There is stable right hepatic lobe cyst. Gallbladder is surgically absent. Visualized adrenal glands are normal appearing. Osseous Structures: There are stable comminuted, nondisplaced right second through fourth rib head f ractures. There is a stable nondisplaced right medial 10th rib fracture. There are nondisplaced transverse process fractures on the right involving the right fourth through ninth thoracic vertebra. These are better detailed on the current examination due to slice thickness. Soft tissues:No abnormality. Other findings:None. Impression: 1. No definite central pulmonary embolus demonstrated. Some limitations to the exam as above. 2. Stable comminuted, nondisplaced right second through fourth rib head fractures. Stable right media l 10th rib fracture. 3. Stable nondisplaced right-sided transverse process fractures of the fourth through ninth thoracic vertebra. 4. Stable small right pleural effusion. 5. Mild left basilar atelectasis.
[2019-08-30] MEDS ORDERED: Morphine 4 MG/ML VIAL ONE (20:25)
[2019-08-30] MEDS ORDERED: Aspirin Chewable 81 MG TAB ONE (20:25)
[2019-08-30] MEDS ORDERED: Enoxaparin Sodium 80 MG/0.8 ML SYRINGE ONE (21:13)
[2019-08-30] MEDS ORDERED: Enoxaparin Sodium 40 MG/0.4 ML SYRINGE ONE (21:13)
[2019-08-30 22:10] LABS: Troponin I Less than 0.010 ng/mL (< 0.028)
[2019-08-30] MEDS ORDERED: Ondansetron ODT 4 MG TAB PO PRN (22:51)
[2019-08-30] MEDS ORDERED: traMADol HCl 50 MG TAB PO PRN ×2 (22:51)
[2019-08-30] MEDS ORDERED: Ondansetron PF 4 MG/2 ML Vial IVP PRN (22:51)
[2019-08-30] MEDS ORDERED: Dextrose 5% in Water 1,000 ML IV PRN (22:51)
[2019-08-30] MEDS ORDERED: Cyclobenzaprine 10 MG TAB PO PRN (22:51)
[2019-08-30] MEDS ORDERED: Dextrose 50% Abboject 50 ML SYRINGE SLOW IVP PRN (22:51)
[2019-08-30 23:08] VITALS: BMI 34.4
[2019-08-30] MEDS: Sodium Chloride 0.9% 1,000 ML IV SCH (23:17)
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
[2019-08-31 05:59] LABS: Troponin I Less than 0.010 ng/mL (< 0.028)
[2019-08-31] MEDS: Acetaminophen 325 MG TAB PO SCH ×2 (06:03→06:24)
[2019-08-31 06:45] LABS: INR-International Normal Ratio 1.7; PTT 41.5 SEC (22.9-36.1); Prothrombin Time 20.2 SEC (12.0-14.7)
[2019-08-31 06:49] LABS: #Eosinphils 0.2 thou/uL (0.0-0.7); #Lymphocytes 1.5 thou/uL (1.20-3.40); #Monocytes 0.7 thou/uL (0.11-0.59); #Neutrophils 5.4 thou/uL (1.40-6.50); %Basophils 0.2 % (0.0-1.0); %Eosinophils 2.2 % (0.0-10.0); %Monocytes 9.5 % (0.0-10.0); %Neutrophils 69.1 % (42.0-75.0); Hemoglobin 11.7 g/dL (14.0-18.0); Mean Corpuscular HGB CONC 32.2 g/dL (32.0-36.0); Mean Corpuscular Hemoglobin 28.4 pg (27.0-31.0); Mean Corpuscular Volume 88.3 fL (78.0-98.0); Mean Platelet Volume 8.8 fL (7.4-10.4); Platelet Count 220 thou/uL (130-400); RBC Distribution Width 14.7 % (11.5-14.5); Red Blood Cell (RBC) Count 4.11 mill/uL (4.70-6.10); White Blood Cell (WBC) Count 7.8 thou/uL (4.8-10.8)
[2019-08-31 06:54] LABS: Phosphorus 2.8 mg/dL (2.3-4.7)
[2019-08-31 06:57] LABS: Anion Gap 9 mmol/L (10-20); BUN (Urea Nitrogen) 11 mg/dL (8.4-25.7); Calc. Creatinine Clearance 156 mL/min (70-130); Calcium 8.1 mg/dL (7.8-10.44); Carbon Dioxide 29 mmol/L (23-31); Chloride 107 mmol/L (98-107); Estimated GFR-MDRD Greater than 90; Glucose 99 mg/dL (80-115); Magnesium 1.9 mg/dL (1.6-2.6); Potassium 4.5 mmol/L (3.5-5.1); Sodium 140 mmol/L (136-145)
[2019-08-31] MEDS: Sodium Chloride 0.9% 1,000 ML IV SCH (07:02)
[2019-08-31] MEDS ORDERED: traMADol HCl 50 MG TAB PO PRN (08:08)
--- NOTE | 2019-08-31 08:58 | RAD ---
EXAM: Chest Two Views 08/30/2019 6:19 PM HISTORY: Chest pain COMPARISON: None. FINDINGS: Lungs: No acute airspace consolidation. Heart: There is mild cardiomegaly without evidence of cardiac decompensation Pulmonary vessels: Normal. Costophrenic angles: Clear. Pneumothorax: None. Osseous structures:Intact. Additional findings: There is postprocedural change involving the lower cervical spine consistent w ith a long segment ACDF. IMPRESSION: No significant acute intrathoracic disease.
[2019-08-31] MEDS ORDERED: Enoxaparin Sodium 40 MG/0.4 ML SYRINGE SC SCH (09:00)
[2019-08-31] MEDS ORDERED: Atorvastatin Calcium 20 MG TAB PO SCH (09:00)
[2019-08-31] MEDS ORDERED: Allopurinol 300 MG TAB PO SCH (09:00)
[2019-08-31] MEDS ORDERED: Levothyroxine Sodium 25 MCG TAB PO SCH (09:00)
[2019-08-31] MEDS ORDERED: Gabapentin 300 MG CAP PO SCH (09:00)
[2019-08-31] MEDS ORDERED: Lisinopril 10 MG TAB PO SCH (09:00)
[2019-08-31] MEDS ORDERED: Non-Formulary Item 1 EACH (Gabapentin [Gabapentin] 600 MG) PO SCH (09:00)
[2019-08-31] MEDS ORDERED: Famotidine 20 MG TAB PO SCH (09:00)
[2019-08-31 11:26] VITALS: TEMP 98
[2019-08-31] MEDS ORDERED: Acetaminophen 325 MG TAB PO SCH (12:00)
[2019-08-31 13:51] VITALS: BP 123/69
[2019-08-31] MEDS ORDERED: Warfarin Sodium 10 MG TAB PO SCH (17:00)
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
== END 2019-08-31 14:12 | disposition home or self-care (01) ==
LOC: ERS 17:18 → 2SE 22:48
PROVIDERS: ADMIT Surgery; ATTEND Surgery
DX: R07.9 Chest pain, unspecified (principal); R06.02 Shortness of breath; I10 Essential (primary) hypertension; E78.5 Hyperlipidemia, unspecified; J90 Pleural effusion, not elsewhere classified; Z79.01 Long term (current) use of anticoagulants; Z79.899 Other long term (current) drug therapy; Z86.711 Personal history of pulmonary embolism; Z86.718 Personal history of other venous thrombosis and embolism
CPT/HCPCS: 36415; 36416; 70450; 71046; 71275; 80048; 80053; 82550; 83735; 84100; 84484; 85025; 85379; 85610; 85730; 93005; 96361; 96372; 96374; G0378; J1650; J2270; Q9967

== ENCOUNTER 2019-09-07 13:32 | Observation (INO) | payer OTHER ==
[2019-09-07 14:12] LABS: #Eosinphils 0.1 thou/uL (0.0-0.7); #Lymphocytes 1.7 thou/uL (1.20-3.40); #Monocytes 0.5 thou/uL (0.11-0.59); #Neutrophils 4.4 thou/uL (1.40-6.50); %Basophils 0.6 % (0.0-1.0); %Eosinophils 1.7 % (0.0-10.0); %Lymphocytes 25.1 % (21.0-51.0); %Monocytes 6.8 % (0.0-10.0); %Neutrophils 65.8 % (42.0-75.0); Hemoglobin 13.3 g/dL (14.0-18.0); Mean Corpuscular HGB CONC 31.1 g/dL (32.0-36.0); Mean Corpuscular Hemoglobin 26.5 pg (27.0-31.0); Mean Corpuscular Volume 85.1 fL (78.0-98.0); Platelet Count 267 thou/uL (130-400); RBC Distribution Width 14.2 % (11.5-14.5); Red Blood Cell (RBC) Count 5.04 mill/uL (4.70-6.10); White Blood Cell (WBC) Count 6.8 thou/uL (4.8-10.8)
[2019-09-07 14:18] LABS: INR-International Normal Ratio 1.8; PTT 32.3 SEC (22.9-36.1); Prothrombin Time 20.9 SEC (12.0-14.7)
[2019-09-07 14:32] LABS: ALT (SGPT) 19 U/L (8-55); AST (SGOT) 16 U/L (5-34); Albumin 3.7 g/dL (3.4-4.8); Alkaline Phosphatase 134 U/L (40-110); Anion Gap 15 mmol/L (10-20); BUN (Urea Nitrogen) 17 mg/dL (8.4-25.7); Bilirubin, Total 0.4 mg/dL (0.2-1.2); Calc. Creatinine Clearance 0 mL/min (70-130); Calcium 9.2 mg/dL (7.8-10.44); Carbon Dioxide 24 mmol/L (23-31); Chloride 106 mmol/L (98-107); Estimated GFR-MDRD 69; Glucose 113 mg/dL (80-115); Potassium 3.7 mmol/L (3.5-5.1); Protein, Total 6.7 g/dL (5.8-8.1); Sodium 141 mmol/L (136-145)
--- NOTE | 2019-09-07 14:45 | RAD ---
PORTABLE CHEST: 09/07/19 HISTORY: Chest pain. COMPARISON: 08/14/19 exam. Heart size appears within normal limits for portable technique. Some linear atelectasis in the left b ase. No focal infiltrative process. IMPRESSION: Linear atelectasis left lung base. POS: [facility]
[2019-09-07 17:36] LABS: Troponin I 0.018 ng/mL (< 0.028)
[2019-09-07] MEDS ORDERED: Aspirin 325 MG TAB ONE (18:13)
--- NOTE | 2019-09-07 20:14 | CT ---
CT PULMONARY ANGIOGRAM WITH IV CONTRAST AND 3D POSTPROCESSIN09/07/19 HISTORY: Chest pain. COMPARISON: 08/30/19. FINDINGS: No filling defects are seen in the contrast opacified pulmonary arterial vasculature to suggest pulmo nary embolism. Thoracic aorta is well opacified without aneurysmal dissection. A small right pleural effusion is seen. There are atelectatic changes in the left lower lobe. No pneumothoraces are identi fied. Abdominal tomograms demonstrate changes of cholecystectomy. A stable right hepatic lobe cyst is again seen. There are degenerative changes in the spine. IMPRESSION: No CT evidence of pulmonary embolism. POS: OFF
[2019-09-07 20:58] LABS: Troponin I 0.031 ng/mL (< 0.028)
[2019-09-07] MEDS ORDERED: Ondansetron PF 4 MG/2 ML Vial IVP PRN (21:05)
[2019-09-07] MEDS ORDERED: Ondansetron ODT 4 MG TAB SL PRN (21:05)
[2019-09-07] MEDS ORDERED: Acetaminophen 325 MG TAB PO PRN (21:05)
[2019-09-07 21:46] VITALS: BMI 33.3
[2019-09-07] MEDS ORDERED: traMADol HCl 50 MG TAB PO PRN (23:37)
[2019-09-07] MEDS ORDERED: Ibuprofen 600 MG TAB PO PRN (23:37)
[2019-09-07] MEDS ORDERED: Polyethylene Glycol 3350 17 GM Packet PO PRN (23:37)
[2019-09-07] MEDS ORDERED: Melatonin 3 MG TAB PO PRN (23:37)
[2019-09-07] MEDS ORDERED: HYDROcodone/Acetaminophen 5/325 mg Tablet PO PRN (23:37)
[2019-09-07] MEDS ORDERED: Senokot 8.6 MG TAB PO PRN (23:37)
[2019-09-08] MEDS: Acetaminophen 325 MG TAB PO SCH ×5 (00:03→23:19)
[2019-09-08 00:19] LABS: Troponin I Less than 0.010 ng/mL (< 0.028)
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
[2019-09-08 05:22] LABS: #Eosinphils 0.2 thou/uL (0.0-0.7); #Lymphocytes 1.7 thou/uL (1.20-3.40); #Monocytes 0.5 thou/uL (0.11-0.59); #Neutrophils 3.9 thou/uL (1.40-6.50); %Basophils 0.7 % (0.0-1.0); %Eosinophils 3.4 % (0.0-10.0); %Lymphocytes 26.9 % (21.0-51.0); %Monocytes 7.8 % (0.0-10.0); %Neutrophils 61.2 % (42.0-75.0); Hemoglobin 12.7 g/dL (14.0-18.0); Mean Corpuscular HGB CONC 31.9 g/dL (32.0-36.0); Mean Corpuscular Hemoglobin 27.6 pg (27.0-31.0); Mean Corpuscular Volume 86.5 fL (78.0-98.0); Platelet Count 227 thou/uL (130-400); RBC Distribution Width 14.2 % (11.5-14.5); Red Blood Cell (RBC) Count 4.59 mill/uL (4.70-6.10); White Blood Cell (WBC) Count 6.4 thou/uL (4.8-10.8)
[2019-09-08 05:23] LABS: INR-International Normal Ratio 1.8; PTT 33.4 SEC (22.9-36.1); Prothrombin Time 20.6 SEC (12.0-14.7)
[2019-09-08 05:44] LABS: Anion Gap 12 mmol/L (10-20); BUN (Urea Nitrogen) 14 mg/dL (8.4-25.7); Calc. Creatinine Clearance 134 mL/min (70-130); Calcium 8.7 mg/dL (7.8-10.44); Carbon Dioxide 26 mmol/L (23-31); Chloride 107 mmol/L (98-107); Estimated GFR-MDRD 87; Glucose 106 mg/dL (80-115); Potassium 4.5 mmol/L (3.5-5.1); Sodium 140 mmol/L (136-145)
[2019-09-08] MEDS: Levothyroxine Sodium 25 MCG TAB PO SCH (05:45)
[2019-09-08] MEDS: Lisinopril 10 MG TAB PO SCH (08:39)
[2019-09-08] MEDS: Gabapentin 300 MG CAP PO SCH ×3 (08:39→20:35)
[2019-09-08] MEDS: Allopurinol 300 MG TAB PO SCH (08:41)
[2019-09-08] MEDS: Atorvastatin Calcium 20 MG TAB PO SCH (08:42)
--- NOTE | 2019-09-08 14:17 | NM ---
NUCLEAR MEDICINE CARDIAC SPECT WITH EF AND WALL MOTION: 09/08/19 HISTORY: Dyspnea on exertion. Possible angina. History of PE. History of DVT, hypertension. Adenosine Sestamibi study is performed. The patient injected with 27.0 millicuries technetium 99m Sestamibi intravenously for stress images a nd patient was injected with 9.0 millicuries technetium 99m Sestamibi intravenously for resting image s. Multiple SPECT images in the short axis, vertical long axis, horizontal long axis demonstrates no sca n evidence of infarct or ischemia. TID 0.84. LHR 0.36. EDV 95 mL. EF 78%. Myocardial perfusion wall motion: Wall motion is normal. IMPRESSION: Unremarkable cardiac SPECT with EF and wall motion. POS: [facility]
[2019-09-08] MEDS ORDERED: Warfarin Sodium 10 MG TAB PO SCH (17:00)
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
[2019-09-09] MEDS: Levothyroxine Sodium 25 MCG TAB PO SCH (05:15)
[2019-09-09] MEDS: Acetaminophen 325 MG TAB PO SCH ×2 (05:15→11:24)
[2019-09-09 05:19] LABS: INR-International Normal Ratio 1.6; Prothrombin Time 18.7 SEC (12.0-14.7)
[2019-09-09] MEDS: Atorvastatin Calcium 20 MG TAB PO SCH (07:45)
[2019-09-09] MEDS: Allopurinol 300 MG TAB PO SCH (07:46)
[2019-09-09] MEDS: Lisinopril 10 MG TAB PO SCH (07:46)
[2019-09-09] MEDS: Gabapentin 300 MG CAP PO SCH (07:46)
[2019-09-09 12:01] VITALS: BP 132/70; TEMP 98.8
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
== END 2019-09-09 14:04 | disposition home or self-care (01) ==
LOC: ERS 13:32 → 2SW 17:08
PROVIDERS: ADMIT Surgery; ATTEND Surgery
DX: R07.9 Chest pain, unspecified (principal); I10 Essential (primary) hypertension; E78.5 Hyperlipidemia, unspecified; R00.0 Tachycardia, unspecified; I95.9 Hypotension, unspecified; S22.41XA Multiple fractures of ribs, right side, initial encounter for closed fracture; Z86.711 Personal history of pulmonary embolism; Z86.718 Personal history of other venous thrombosis and embolism; Z79.01 Long term (current) use of anticoagulants; Z79.899 Other long term (current) drug therapy; Z98.890 Other specified postprocedural states; V89.2XXA Person injured in unspecified motor-vehicle accident, traffic, initial encounter
CPT/HCPCS: 36415; 71045; 71275; 78452; 80048; 80053; 83735; 84100; 84443; 84484; 85025; 85610; 85730; 93005; 93017; 96360; 96361; A9500; G0378; J0153; Q9967

== ENCOUNTER 2019-09-22 13:10 | Outpatient (CLI) | payer OTHER ==
--- NOTE | 2019-09-22 14:25 | RAD ---
CERVICAL SPINE SERIES THREE VIEWS: 09/22/19 HISTORY: Follow-up of surgery. FINDINGS: The patient has undergone anterior cervical fusion with plate and screws extending from C3 to C6. The re is also a plate and screws seen from C7 to what appears to be T2. No soft tissue swelling. Disc im plants are seen at the C3-4 and C4-5 levels. IMPRESSION: Postop changes of the spine. POS: [facility]
== END 2019-09-22 13:11 | disposition home or self-care (01) ==
LOC: TBSIIMAG 13:10
PROVIDERS: ATTEND Surgery
DX: S12.600A Unspecified displaced fracture of seventh cervical vertebra, initial encounter for closed fracture (principal); Z98.1 Arthrodesis status
CPT/HCPCS: 72040

== ENCOUNTER 2022-11-30 11:24 | Emergency (ER) | payer MEDICARE, SELFPAY ==
[2022-11-30 11:58] LABS: #Basophils 0.1 thou/uL (0.0-0.2); #Eosinphils 0.4 thou/uL (0.0-0.7); #Monocytes 0.6 thou/uL (0.11-0.59); #Neutrophils 7.3 thou/uL (1.40-6.50); %Basophils 0.5 % (0.0-1.0); %Eosinophils 3.8 % (0.0-10.0); %Lymphocytes 17.2 % (21.0-51.0); %Monocytes 6.3 % (0.0-10.0); %Neutrophils 71.8 % (42.0-75.0); Hemoglobin 14.4 g/dL (14.0-18.0); Mean Corpuscular HGB CONC 29.8 g/dL (32.0-36.0); Mean Corpuscular Hemoglobin 25.6 pg (27.0-31.0); Mean Corpuscular Volume 85.9 fl (78.0-98.0); Mean Platelet Volume 10.3 fL (7.4-10.4); Platelet Count 232 10x3/uL (130-400); RBC Distribution Width 15.1 % (11.5-14.5); Red Blood Cell (RBC) Count 5.62 mill/uL (4.70-6.10); White Blood Cell (WBC) Count 10.1 10x3/uL (4.8-10.8)
[2022-11-30] MEDS ORDERED: Meclizine HCl 25 MG TAB ONE (12:12)
[2022-11-30 12:32] LABS: ALT (SGPT) 22 U/L (8-55); AST (SGOT) 19 U/L (5-34); Alkaline Phosphatase 86 U/L (40-110); Anion Gap 13 mmol/L (10-20); BUN (Urea Nitrogen) 22 mg/dL (8.4-25.7); Bilirubin, Total 0.3 mg/dL (0.2-1.2); Calc. Creatinine Clearance 0 mL/min (70-130); Calcium 9.4 mg/dL (7.8-10.44); Carbon Dioxide 29 mmol/L (23-31); Chloride 105 mmol/L (98-107); Estimated GFR 60; Globulin 2.9 g/dL (2.4-3.5); Glucose 113 mg/dL (80-115); Potassium 4.5 mmol/L (3.5-5.1); Protein, Total 6.9 g/dL (5.8-8.1); Sodium 142 mmol/L (136-145)
== END 2022-11-30 13:55 | disposition home or self-care (01) ==
LOC: ERS 11:24
DX: H81.13 Benign paroxysmal vertigo, bilateral (principal); I10 Essential (primary) hypertension; E78.5 Hyperlipidemia, unspecified; Z79.84 Long term (current) use of oral hypoglycemic drugs; Z79.899 Other long term (current) drug therapy; Z79.01 Long term (current) use of anticoagulants
CPT/HCPCS: 36415; 70450; 80053; 84484; 85025; 93005